=== PATIENT | male | born 1950 | race Caucasian/White ===

== ENCOUNTER 2023-05-01 23:25 | Emergency (ER) | payer MEDICARE, BC, SELFPAY ==
[2023-05-01 23:44] VITALS: BP 95/67
[2023-05-02 00:12] VITALS: BP 100/80
[2023-05-02 00:13] VITALS: BMI 28.7
[2023-05-02] MEDS: ZOFRAN 4 MG IV (00:21)
[2023-05-02] MEDS: NSS 1000 IV (00:22)
[2023-05-02 00:36] LABS: % Basophils 0.2 % (0-2); % Immature Granulocytes 0.8 % (0-0.5); % Lymphocytes 23.1 % (20.5-51.1); % Monocytes 7.5 % (1.7-9.3); % Neutrophils 65.4 % (42.2-75.2); Absolute Eosinophils 0.5 10^3/uL (0-0.7); Absolute Immature Granulocytes 0.1 10^3/uL (0-0.05); Absolute Lymphocytes 3.8 10^3/uL (1.2-3.4); Absolute Monocytes 1.2 10^3/uL (0.1-0.6); Absolute Neutrophils 10.8 10^3/uL (1.4-6.5); Hematocrit 54.8 % (39.0-52.0); Hemoglobin 19.1 g/dL (13.0-18.0); Mean Corp Hgb Conc. 34.9 g/dL (33.0-37.0); Mean Corpuscular Hgb 29.3 pg (27.0-31.0); Mean Platelet Volume 9.3 fL (7.4-10.4); Nucleated Red Blood Cells % 0 % (-); Platelet Count 357 10^3/uL (130-400); Red Blood Cell Count 6.52 10^6/uL (4.70-6.10); Red Cell Dist. Width 14.4 % (11.5-14.5); White Blood Cell Count 16.5 10^3/uL (4.8-10.8)
--- NOTE | 2023-05-02 00:44 | ED.GENMED ---
History of Present Illness
General
Chief Complaint: Abdominal Symptoms
Source: patient
Exam Limitations: none
Time Seen by Provider: 05/02/23 00:33
Travel History
Have you had any contact with someone who has COVID-19?: No
Do you have any symptoms of coronavirus? Fever > 100 degrees, chills, cough, shortness of breath, sore throat, loss of taste or smell, muscle aches, or headache?: No
History of Present Illness
History of Present Illness:
72-year-old male with complaining of vomiting diarrhea and at times crampy abdominal pain. Had symptoms about a week ago for 3 days then seem to resolve then recurred in the last day or so. No blood or mucus in the stool. No recent antibiotics.
No recent unusual travel history. No one else is ill at home. Currently mostly complaining of nausea
Past History
Past History
ED Past Medical History: Arrthythmia (Atrial fibrillation), CAD, HTN, Hypercholesterolemia and Other (Gout)
ED Past Surgical History: Appendectomy and Cardiac
Patient has exhibited threatening behavior?: No
PSI?: No
Social History
Tobacco: Non-smoker
Alcohol: Occasional
Drug: None
Review of Systems
Review of Systems
All Other Systems: Not applicable
Constitutional: Denies fever
Respiratory: Reports no symptoms
Phy Exam
Physical Exam
Physical Exam:
GENERAL: Alert and oriented in no apparent distress
EYE: Orbits normal.
NECK: Supple, no significant adenopathy.
ENT: Pharynx without erythema
CARDIAC: Regular rate and rhythm without any obvious murmurs.
LUNGS: Clear breath sounds,normal
ABDOMEN: Soft, bowel sounds present. No rebound or guarding. No mass or hernia. Mild suprapubic tenderness.
NEUROLOGICAL: Alert and oriented , grossly non-focal
SKIN: Warm and dry, no rash or lesion, no discoloration, skin intact.
MUSCULOSKELETAL: No edema,no deformity.Good color
PSYCH: Normal and appropriate interaction.
Course
Orders/Labs/Results
Orders:
Orders
05/02/23 00:03
EKG [Electrocardiogram (*1)] Urgent
Reason for Study: Fatigue / Weakness
05/02/23 00:04
EKG- Treatment ONCE
05/02/23 00:05
IV Insert/Care/Rem.- Treatment PRN
05/02/23 00:18
Complete Blood Count/With Diff Urgent
Comprehensive Metabolic Panel Urgent
Lipase Urgent
05/02/23 00:20
Ondansetron Injectable [Zofran] 4 mg .ROUTE .STK-MED ONE
Ondansetron Injectable [Zofran] 4 mg IV NOW STA
05/02/23 00:22
0.9% Sodium Chloride 1000 ml [Nss] 1,000 ml IV BOLUS
05/02/23 00:40
CT Abd/Pel (IV only)-DH only Urgent
Comment:
Reason For Exam: Abdominal pain/vomiting/diarrhea
05/02/23 02:43
Azithromycin [Zithromax] 500 mg PO NOW STA
Abnormal Lab Results
05/02/23
00:18
WBC 16.5 H 10^3/uL
(4.8-10.8)
RBC 6.52 H 10^6/uL
(4.70-6.10)
Hgb 19.1 H g/dL
(13.0-18.0)
Hct 54.8 H %
(39.0-52.0)
Abs Immat Gran (auto) 0.1 H 10^3/uL
(0-0.05)
Absolute Neuts (auto) 10.8 H 10^3/uL
(1.4-6.5)
Absolute Lymphs (auto) 3.8 H 10^3/uL
(1.2-3.4)
Absolute Monos (auto) 1.2 H 10^3/uL
(0.1-0.6)
Immature Gran % 0.8 H %
(0-0.5)
Carbon Dioxide 21 L mmol/L
(22-30)
BUN 34 H mg/dl
(9-20)
Creatinine 1.4 H mg/dL
(0.7-1.3)
Glucose 184 H mg/dl
(70-99)
Calcium 10.6 H mg/dl
(8.4-10.2)
Total Bilirubin 1.4 H mg/dl
(0.2-1.3)
05/02/23 00:18
05/02/23 00:18
Vital Signs
Initial and Last Documented VS:
Initial Vital Signs
Temp Pulse Resp BP Pulse Ox
97.4 F 78 18 95/67 98
05/01/23 23:44 05/01/23 23:44 05/01/23 23:44 05/01/23 23:44 05/01/23 23:44
Last Documented Vital Signs
Temp Pulse Resp BP Pulse Ox
97.4 F 90 16 110/82 100
05/01/23 23:44 05/02/23 02:45 05/02/23 02:45 05/02/23 02:13 05/02/23 00:13
MDM/Problems Addressed
Differential Diagnosis Includes:
Symptoms most consistent with colitis or enteritis. Workup in progress.
*Radiology
Radiology exam reviewed: radiology read reviewed (Ackerman colitis)
*Pulse Oximetry
Patient hypoxic: no
*Critical Care Note
Total Time (30-74mins, 75-104mins- exclusive of procedures): Not Applicable
Data Reviewed
Review of Other/Old Records Reveals: Labs, Records and Radiology Studies
Update Note
Update Note:
Patient updated on testing. Leukocytosis, pancolitis. Patient would very much prefer to go home and states he feels much improved. Given patient's age and leukocytosis we will start azithromycin. Patient does not tolerate Cipro well. No blood
or mucus in the stool. Admission was offered
ED Attending Note
-
Portions of this chart may have been created with voice recognition software.� Occasional wrong word or��sound alike� substitutions may have occurred due to the inherent limitations of voice recognition software.
Discharge Plan
Departure
Patient Disposition: Home (Routine Discharge)
Date of Disposition: 05/02/23
Time of Disposition: 02:44
Patient with high blood pressure during this ER visit?: No
Discharge Problem:
Colitis
Instructions: Colitis (DC)
Prescriptions:
New
azithromycin 500 mg tablet
500 mg PO DAILY 2 Days Qty: 2 0RF
No Action
atorvastatin 80 MG tablet
80 mg PO HS
atenolol 25 MG tablet
25 mg PO BID
pantoprazole [Protonix] 40 MG tablet,delayed release (DR/EC)
40 mg PO DAILY
aspirin 81 MG tablet,chewable
81 mg PO DAILY
dabigatran etexilate [Pradaxa] 150 mg Capsule
150 mg PO BID
metformin 500 mg Tablet Extended Release 24 Hr
500 mg PO DAILY@1700
losartan 25 mg tablet
50 mg PO BID
triamterene-hydrochlorothiazid 37.5-25 mg Capsule
1 cap PO DAILY
Rybelsus 7 mg Tablet
7 mg PO DAILY
Referrals:
Lennox Ellsworth MD [Family Provider] - Follow up in 2-3 days
Activity Restrictions/Additional Instructions:
Light diet
Stay well-hydrated
Return with increased pain vomiting high fever bloody stools or any other concerning symptoms
Also get rechecked if symptoms or not improving in 1 to 2 days
Interventions
Interventions:
*Risk Screen - Suicide Last Done: 05/02/23 00:13
*General Assessment Last Done: 05/02/23 00:13
*Neglect/Abuse Screening Last Done: 05/02/23 00:13
ED- Fall Risk Assessment Last Done: 05/02/23 00:13
*ED COVID-19 Vaccine History Last Done: 05/02/23 00:13
*Nursing Disposition Last Done: 05/02/23 02:59
DN-Hfmbfi-Dqvrzhnjnl Assessment Last Done: 05/02/23 00:13
Discharge Date and Time
Discharge Date/Time: 05/02/23 02:59
[2023-05-02 00:47] LABS: ALT (SGPT) 27 U/L (0-50); AST (SGOT) 26 U/L (17-59); Albumin 4.6 g/dl (3.5-5.0); Alkaline Phosphatase 90 U/L (38-126); Blood Urea Nitrogen 34 mg/dl (9-20); Calcium 10.6 mg/dl (8.4-10.2); Carbon Dioxide 21 mmol/L (22-30); Chloride 101 mmol/L (98-107); Estimated Creatinine Clearance 45 ml/min; Glucose 184 mg/dl (70-99); Potassium 3.9 mmol/L (3.5-5.1); Sodium 140 mmol/L (135-145); Total Bilirubin 1.4 mg/dl (0.2-1.3); Total Protein 7.8 g/dl (6.3-8.2); eGFR 52.74
[2023-05-02 01:00] VITALS: BP 106/86
[2023-05-02 01:09] LABS: Lipase 120 U/L (23-300)
[2023-05-02 02:13] VITALS: BP 110/82
[2023-05-02] MEDS: ZITHROMAX 500 MG PO ×2 (02:50)
== END 2023-05-02 02:59 | disposition home or self-care (01) ==
LOC: EMR 23:25
PROVIDERS: Emergency Medicine; EMERGENCY PHYSICIAN Emergency Medicine; FAMILY PHYSICIAN Internal Medicine Geriatric Medicine
DX: K52.9 Noninfective gastroenteritis and colitis, unspecified (principal)
CPT/HCPCS: 99285; 96374; 74177; 80053; 83690; 85025; 93005; Q9967

== ENCOUNTER → 2023-06-23 09:30 | Outpatient (REF) | payer MEDICARE, BC, SELFPAY ==
[2023-06-23 10:20] LABS: % Basophils 0.5 % (0-2); % Eosinophils 4.1 % (0-6); % Immature Granulocytes 0.5 % (0-0.5); % Lymphocytes 31.8 % (20.5-51.1); % Monocytes 11.1 % (1.7-9.3); Absolute Eosinophils 0.3 10^3/uL (0-0.7); Absolute Monocytes 0.7 10^3/uL (0.1-0.6); Absolute Neutrophils 3.3 10^3/uL (1.4-6.5); Hematocrit 45.8 % (39.0-52.0); Hemoglobin 15.9 g/dL (13.0-18.0); Mean Corp Hgb Conc. 34.7 g/dL (33.0-37.0); Mean Corpuscular Hgb 29.4 pg (27.0-31.0); Mean Corpuscular Volume 84.7 fL (80.0-94.0); Nucleated Red Blood Cells % 0 % (-); Platelet Count 253 10^3/uL (130-400); Red Blood Cell Count 5.41 10^6/uL (4.70-6.10); Red Cell Dist. Width 14.3 % (11.5-14.5); White Blood Cell Count 6.3 10^3/uL (4.8-10.8)
[2023-06-23 12:18] LABS: Glycohemoglobin (HgbA1c) 6.2 % (4.0-5.6)
[2023-06-23 13:58] LABS: ALT (SGPT) 31 U/L (0-50); AST (SGOT) 26 U/L (17-59); Albumin 4.4 g/dl (3.5-5.0); Alkaline Phosphatase 73 U/L (38-126); Blood Urea Nitrogen 29 mg/dl (9-20); Calcium 9.9 mg/dl (8.4-10.2); Carbon Dioxide 28 mmol/L (22-30); Chloride 98 mmol/L (98-107); Glucose 105 mg/dl (70-99); HDL Cholesterol 34 mg/dl; LDL Cholesterol, Calculated 65 mg/dl; Potassium 3.8 mmol/L (3.5-5.1); Sodium 138 mmol/L (135-145); Total Bilirubin 1.4 mg/dl (0.2-1.3); Total Cholesterol 128 mg/dl (50-199); Total Protein 7.4 g/dl (6.3-8.2); Triglyceride 149 mg/dl (10-149); Very Low Density Lipoprotein 29 mg/dl (0-30); eGFR > 60.00
== END ==
LOC: REG 09:30
PROVIDERS: ATTENDING PHYSICIAN Physician Assistant; FAMILY PHYSICIAN Internal Medicine Geriatric Medicine
DX: E11.9 Type 2 diabetes mellitus without complications (principal)
CPT/HCPCS: 36415; 80053; 80061; 83036; 85025

== ENCOUNTER → 2023-08-20 08:43 | Outpatient (REF) | payer MEDICARE, BC, SELFPAY ==
[2023-08-20 14:33] LABS: Lyme Antibody Screen, EIA Negative (Negative)
== END ==
LOC: REG 08:43
PROVIDERS: ATTENDING PHYSICIAN Nurse Practitioner Family; FAMILY PHYSICIAN Internal Medicine Geriatric Medicine
DX: S40.262A Insect bite (nonvenomous) of left shoulder, initial encounter (principal)
CPT/HCPCS: 36415; 86618

== ENCOUNTER → 2023-10-07 09:02 | Outpatient (REF) | payer MEDICARE, BC, SELFPAY | LOC: REG 09:02 | PROVIDERS: ATTENDING PHYSICIAN Nurse Practitioner Family | DX: E11.9 Type 2 diabetes mellitus without complications (principal) | CPT/HCPCS: 36415; 82985 ==

== ENCOUNTER → 2023-10-20 14:06 | Outpatient (REF) | payer MEDICARE, BC, SELFPAY ==
[2023-10-23 00:06] LABS: Fructosamine 299 umol/L (205-285)
== END ==
LOC: REG 14:06
PROVIDERS: ATTENDING PHYSICIAN Nurse Practitioner Family; FAMILY PHYSICIAN Internal Medicine Geriatric Medicine
DX: E11.65 Type 2 diabetes mellitus with hyperglycemia (principal)
CPT/HCPCS: 36415; 82985

== ENCOUNTER → 2023-11-09 09:26 | Outpatient (REF) | payer MEDICARE, BC, SELFPAY ==
[2023-11-09 10:43] LABS: % Basophils 0.6 % (0-2); % Eosinophils 4.8 % (0-6); % Immature Granulocytes 0.2 % (0-0.5); % Lymphocytes 33.7 % (20.5-51.1); % Monocytes 9.5 % (1.7-9.3); % Neutrophils 51.2 % (42.2-75.2); Absolute Eosinophils 0.3 10^3/uL (0-0.7); Absolute Lymphocytes 2.2 10^3/uL (1.2-3.4); Absolute Monocytes 0.6 10^3/uL (0.1-0.6); Absolute Neutrophils 3.4 10^3/uL (1.4-6.5); Hematocrit 45.3 % (39.0-52.0); Hemoglobin 15.8 g/dL (13.0-18.0); Mean Corp Hgb Conc. 34.9 g/dL (33.0-37.0); Mean Corpuscular Hgb 29.9 pg (27.0-31.0); Mean Corpuscular Volume 85.6 fL (80.0-94.0); Mean Platelet Volume 9.6 fL (7.4-10.4); Nucleated Red Blood Cells % 0 % (-); Platelet Count 235 10^3/uL (130-400); Red Blood Cell Count 5.29 10^6/uL (4.70-6.10); Red Cell Dist. Width 13.7 % (11.5-14.5); White Blood Cell Count 6.6 10^3/uL (4.8-10.8)
[2023-11-09 11:35] LABS: ALT (SGPT) 35 U/L (0-50); AST (SGOT) 30 U/L (17-59); Albumin 4.5 g/dl (3.5-5.0); Alkaline Phosphatase 72 U/L (38-126); Blood Urea Nitrogen 28 mg/dl (9-20); Calcium 9.5 mg/dl (8.4-10.2); Carbon Dioxide 24 mmol/L (22-30); Chloride 101 mmol/L (98-107); Glucose 134 mg/dl (70-99); HDL Cholesterol 32 mg/dl; LDL Cholesterol, Calculated 48 mg/dl; Potassium 3.9 mmol/L (3.5-5.1); Sodium 139 mmol/L (135-145); Total Cholesterol 106 mg/dl (50-199); Triglyceride 131 mg/dl (10-149); Very Low Density Lipoprotein 26 mg/dl (0-30); eGFR > 60.00
[2023-11-11 00:05] LABS: PSA Total 3.8 ng/mL (0.0-4.0)
== END ==
LOC: REG 09:26
PROVIDERS: ATTENDING PHYSICIAN Physician Assistant; FAMILY PHYSICIAN Internal Medicine Geriatric Medicine
DX: E11.65 Type 2 diabetes mellitus with hyperglycemia (principal); E78.5 Hyperlipidemia, unspecified; R97.20 Elevated prostate specific antigen [PSA]
CPT/HCPCS: 36415; 80053; 80061; 83036; 84153; 84154; 85025

== ENCOUNTER → 2023-11-11 11:34 | Outpatient (REF) | payer MEDICARE, BC, SELFPAY | LOC: DHCBC/DCA 11:34 | PROVIDERS: ATTENDING PHYSICIAN Internal Medicine Cardiovascular Disease; FAMILY PHYSICIAN Internal Medicine Geriatric Medicine | DX: I25.10 Atherosclerotic heart disease of native coronary artery without angina pectoris (principal) | CPT/HCPCS: 78452; 93017; A9500 ==

== ENCOUNTER → 2023-12-23 10:19 | Outpatient (REF) | payer MEDICARE, BC, SELFPAY | LOC: RAD 10:19 | PROVIDERS: ATTENDING PHYSICIAN Nurse Practitioner Family; FAMILY PHYSICIAN Internal Medicine Geriatric Medicine; REFERRING PHYSICIAN Internal Medicine Cardiovascular Disease | DX: M54.50 Low back pain, unspecified (principal) | CPT/HCPCS: 72110 ==

== ENCOUNTER → 2024-01-29 07:21 | Outpatient (REF) | payer MEDICARE, BC, SELFPAY ==
[2024-01-29 08:28] LABS: Urine Albumin Trace (Neg - Trace); Urine Bilirubin Negative (Negative); Urine Character Clear (Clear); Urine Color Yellow; Urine Glucose Negative (Negative); Urine Ketone Negative (Negative); Urine Leukocyte Negative (Negative); Urine Nitrite Negative (Negative); Urine Occult Blood 1+ (Negative); Urine Specific Gravity 1.015 (<1.030); Urine Urobilinogen Negative (Neg - 1+)
[2024-01-29 08:36] LABS: Urine Bacteria Few (Negative); Urine Red Blood Cell 0-2 /HPF (0-2); Urine Squamous Cell 0-2 /LPF (Few); Urine White Cell 0-2 /HPF (0-5)
[2024-01-29 08:59] LABS: Blood Urea Nitrogen 25 mg/dl (9-20); Calcium 9.6 mg/dl (8.4-10.2); Carbon Dioxide 29 mmol/L (22-30); Chloride 99 mmol/L (98-107); Glucose 197 mg/dl (70-99); Potassium 3.9 mmol/L (3.5-5.1); Sodium 140 mmol/L (135-145); eGFR > 60.00
[2024-01-29 09:16] LABS: Microalbumin, Random Urine 9.5 mg/dl (0.6-1.7); Microalbumin/creatinine Ratio 103.1 mg/g
[2024-01-29 10:10] LABS: Glycohemoglobin (HgbA1c) 7.7 % (4.0-5.6)
== END ==
LOC: REG 07:21
PROVIDERS: ATTENDING PHYSICIAN Nurse Practitioner Family; FAMILY PHYSICIAN Internal Medicine Geriatric Medicine
DX: E11.65 Type 2 diabetes mellitus with hyperglycemia (principal); M54.50 Low back pain, unspecified
CPT/HCPCS: 36415; 80048; 81003; 81015; 82043; 82570; 83036

== ENCOUNTER → 2024-07-27 08:58 | Outpatient (REF) | payer MEDICARE, BC, SELFPAY ==
[2024-07-27 10:19] LABS: Glycohemoglobin (HgbA1c) 7.4 % (4.0-5.6)
[2024-07-27 11:13] LABS: ALT (SGPT) 48 U/L (0-50); AST (SGOT) 31 U/L (17-59); Albumin 4.6 g/dl (3.5-5.0); Alkaline Phosphatase 60 U/L (38-126); Blood Urea Nitrogen 34 mg/dl (9-20); Calcium 9.4 mg/dl (8.4-10.2); Carbon Dioxide 27 mmol/L (22-30); Chloride 102 mmol/L (98-107); Glucose 189 mg/dl (70-99); Sodium 142 mmol/L (135-145); Total Bilirubin 1.3 mg/dl (0.2-1.3); Total Protein 7.3 g/dl (6.3-8.2); eGFR > 60.00
== END ==
LOC: REG 08:58
PROVIDERS: ATTENDING PHYSICIAN Physician Assistant; FAMILY PHYSICIAN Internal Medicine Geriatric Medicine
DX: E11.65 Type 2 diabetes mellitus with hyperglycemia (principal)
CPT/HCPCS: 36415; 80053; 83036

== ENCOUNTER → 2024-08-22 08:22 | Outpatient (REF) | payer MEDICARE, BC, SELFPAY ==
[2024-08-22 14:06] LABS: ALT (SGPT) 56 U/L (0-50); AST (SGOT) 35 U/L (17-59); Albumin 4.6 g/dl (3.5-5.0); Alkaline Phosphatase 62 U/L (38-126); Blood Urea Nitrogen 30 mg/dl (9-20); Calcium 9.3 mg/dl (8.4-10.2); Carbon Dioxide 24 mmol/L (22-30); Chloride 108 mmol/L (98-107); Glucose 166 mg/dl (70-99); Potassium 4.2 mmol/L (3.5-5.1); Sodium 143 mmol/L (135-145); Total Bilirubin 1.3 mg/dl (0.2-1.3); Total Protein 7.2 g/dl (6.3-8.2); eGFR > 60.00
== END ==
LOC: REG 08:22
PROVIDERS: ATTENDING PHYSICIAN Physician Assistant; FAMILY PHYSICIAN Internal Medicine Geriatric Medicine
DX: E11.65 Type 2 diabetes mellitus with hyperglycemia (principal)
CPT/HCPCS: 36415; 80053

== ENCOUNTER → 2024-09-02 07:51 | Outpatient (REF) | payer MEDICARE, BC, SELFPAY ==
--- NOTE | 2024-09-02 09:31 | CARDSERVLU ---
Echocardiogram with Lumason completed after protocol screening completed. Allergies verified. Pt here for Echo Stress test.
Patent IV site: Right antecubital 22 G PC
IV site flushed with 0.9% NaCl pre and post administration.
Diluted bolus method utilized to enhance visualization of ventricular jolly.
Total volume given: _4__ mL
Patient tolerated all procedures well without complications.
Heplock D/C ed at 0931, site clear. Pressure held, no bleeding. 2x2 applied and taped. Pt offers no complaints.
== END ==
LOC: RCS 07:51
PROVIDERS: ATTENDING PHYSICIAN Internal Medicine Geriatric Medicine
DX: I48.0 Paroxysmal atrial fibrillation (principal); I25.10 Atherosclerotic heart disease of native coronary artery without angina pectoris; I10 Essential (primary) hypertension; E78.5 Hyperlipidemia, unspecified; E11.65 Type 2 diabetes mellitus with hyperglycemia; K21.9 Gastro-esophageal reflux disease without esophagitis; E11.43 Type 2 diabetes mellitus with diabetic autonomic (poly)neuropathy; K31.84 Gastroparesis
CPT/HCPCS: 93017; 93350

== ENCOUNTER → 2024-10-31 07:42 | Outpatient (REF) | payer MEDICARE, BC, SELFPAY ==
[2024-10-31 09:27] LABS: Hematocrit 46.1 % (39.0-52.0); Hemoglobin 15.5 g/dL (13.0-18.0); Mean Corp Hgb Conc. 33.6 g/dL (33.0-37.0); Mean Corpuscular Volume 86.3 fL (80.0-94.0); Nucleated Red Blood Cells % 0 % (-); Platelet Count 222 10^3/uL (130-400); Red Cell Dist. Width 13.7 % (11.5-14.5)
[2024-10-31 09:41] LABS: Urine Character Clear (Clear)
[2024-10-31 10:34] LABS: HDL Cholesterol 29 mg/dl; LDL Cholesterol, Calculated 60 mg/dl; Very Low Density Lipoprotein 34 mg/dl (0-30)
[2024-10-31 10:38] LABS: Vitamin D, 25-OH*** 30.7 ng/mL (30-80)
[2024-10-31 10:46] LABS: Microalb - Urine Creatinine 169.000 mg/dl
[2024-10-31 10:49] LABS: Microalbumin, Random Urine 7.8 mg/dl (0.6-1.7)
[2024-10-31 10:51] LABS: Urine Squamous Cell 0-2 /LPF (Few)
[2024-10-31 10:52] LABS: PSA, Total - Diagnostic 4.45 ng/ml (0.0-4.0)
[2024-10-31 10:53] LABS: Urine Red Blood Cell 0-2 /HPF (0-2)
[2024-10-31 11:00] LABS: Glycohemoglobin (HgbA1c) 8.4 % (4.0-5.6)
[2024-10-31 12:57] LABS: Lyme Antibody Screen, EIA Negative (Negative)
== END ==
LOC: REG 07:42
PROVIDERS: ATTENDING PHYSICIAN Internal Medicine Geriatric Medicine; OTHER PHYSICIAN Physician Assistant; REFERRING PHYSICIAN Student in an Organized Health Care Education/Training Program
DX: E11.65 Type 2 diabetes mellitus with hyperglycemia (principal); I48.0 Paroxysmal atrial fibrillation; I10 Essential (primary) hypertension; E78.5 Hyperlipidemia, unspecified; I25.10 Atherosclerotic heart disease of native coronary artery without angina pectoris; K21.9 Gastro-esophageal reflux disease without esophagitis; E11.43 Type 2 diabetes mellitus with diabetic autonomic (poly)neuropathy; K31.84 Gastroparesis; R97.20 Elevated prostate specific antigen [PSA]
CPT/HCPCS: 36415; 80061; 81003; 81015; 82043; 82306; 82570; 83036; 84153; 85025; 86618; 86765

== ENCOUNTER → 2024-11-25 09:09 | Outpatient (REF) | payer MEDICARE, BC, SELFPAY ==
[2024-11-25 11:05] LABS: ALT (SGPT) 51 U/L (0-50); AST (SGOT) 33 U/L (17-59); Albumin 4.5 g/dl (3.5-5.0); Alkaline Phosphatase 64 U/L (38-126); Blood Urea Nitrogen 37 mg/dl (9-20); Calcium 9.7 mg/dl (8.4-10.2); Carbon Dioxide 27 mmol/L (22-30); Chloride 104 mmol/L (98-107); Glucose 158 mg/dl (70-99); Potassium 4.0 mmol/L (3.5-5.1); Sodium 141 mmol/L (135-145); Total Protein 7.4 g/dl (6.3-8.2); eGFR 56.93
== END ==
LOC: REG 09:09
PROVIDERS: ATTENDING PHYSICIAN Internal Medicine Geriatric Medicine; OTHER PHYSICIAN Student in an Organized Health Care Education/Training Program; REFERRING PHYSICIAN Physician Assistant
DX: E11.65 Type 2 diabetes mellitus with hyperglycemia (principal); I10 Essential (primary) hypertension
CPT/HCPCS: 36415; 80053; 82985

== ENCOUNTER 2025-03-15 00:52 | Observation (INO) | payer MEDICARE, BC, SELFPAY ==
[2025-03-14 22:44] VITALS: BP 141/82
[2025-03-14 22:47] VITALS: BP 141/82
[2025-03-14 23:00] VITALS: BP 147/92
[2025-03-14 23:06] LABS: Hematocrit 47.5 % (39.0-52.0); Hemoglobin 16.2 g/dL (13.0-18.0); Mean Corp Hgb Conc. 34.1 g/dL (33.0-37.0); Mean Corpuscular Volume 84.4 fL (80.0-94.0); Nucleated Red Blood Cells % 0 % (-); Platelet Count 202 10^3/uL (130-400); Red Cell Dist. Width 13.8 % (11.5-14.5)
[2025-03-14 23:13] LABS: COVID-19 Antigen Negative (Negative)
[2025-03-14 23:29] LABS: ALT (SGPT) 51 U/L (0-50); AST (SGOT) 137 U/L (17-59); Albumin 4.6 g/dl (3.5-5.0); Alkaline Phosphatase 67 U/L (38-126); Blood Urea Nitrogen 23 mg/dl (9-20); Calcium 9.3 mg/dl (8.4-10.2); Carbon Dioxide 22 mmol/L (22-30); Chloride 98 mmol/L (98-107); Glucose 283 mg/dl (70-99); Potassium 3.9 mmol/L (3.5-5.1); Sodium 134 mmol/L (135-145); Total Protein 7.6 g/dl (6.3-8.2); eGFR > 60.00
--- NOTE | 2025-03-14 23:41 | ED.GENMED ---
History of Present Illness
General
Chief Complaint: Abdominal Symptoms
Source: patient and family
Exam Limitations: none
Time Seen by Provider: 03/14/25 23:12
Nursing documentation reviewed up to this point in time: agreed with
History of Present Illness
History of Present Illness:
74-year-old male from home with family cough fever nausea vomiting decreased p.o. intake weakness has some Tylenol no diarrhea mild abdominal cramping hypertensive diabetic did get a flu shot apparently
Past History
Past History
ED Past Medical History: Arrthythmia (Atrial fibrillation), CAD, HTN, Hypercholesterolemia and Other (Gout)
ED Past Surgical History: Appendectomy and Cardiac
Patient has exhibited threatening behavior?: No
PSI?: No
Social History
Tobacco: Non-smoker
Alcohol: Occasional
Drug: None
Personal:
Living: with family
Employment: Employed
Review of Systems
Review of Systems
All Other Systems: Not applicable
Constitutional: Reports fever, fatigue and chills
Respiratory: Reports cough and trouble breathing
Cardiac: Denies chest pain
ABD/GI: Reports nausea and vomiting
: Reports no symptoms
Musculoskeletal: Reports muscle stiffness
Neurological: Reports weakness
Phy Exam
Physical Exam
Physical Exam:
Physical Exam
General: 74-year-old male warm to touch
Neck: Dry lips
Heart: Tachycardic
Lungs: Basilar crackles
Abdomen: Nontender
Neuro: Globally weak awake and oriented moves all extremities
Skin: no rash
Psychiatric: cooperative
Extremities: No cyanosis
Course
Orders/Labs/Results
Orders:
Orders
03/14/25 22:46
Electrocardiogram (*1) Urgent
Reason for Study: Shortness of Breath
EKG- Treatment ONCE
CR Chest - 2 Views Urgent
Comment:
Reason For Exam: cough
03/14/25 22:48
Urinalysis Reflex To Culture Urgent
03/14/25 22:53
COVID-19 Antigen Urgent
Source: Nasal Swab
Complete Blood Count/With Diff Urgent
Comprehensive Metabolic Panel Urgent
Blood Culture Q30M
JANETH Source: Blood/Venous
Specimen Description:
Blood Culture Q30M
JANETH Source: Blood/Venous
Specimen Description:
Influenza A+B Rapid Molecular Urgent
JANETH Source: Nasal Swab
Specimen Description:
03/14/25 23:31
0.9% Sodium Chloride 1000 ml [Nss] 2,000 ml IV BOLUS
Acetaminophen [Tylenol] 650 mg PO NOW STA
Ondansetron Injectable [Zofran] 4 mg IV NOW STA
03/14/25 23:39
0.9% Sodium Chloride 1000 ml [Nss] 1,000 ml IV BOLUS
03/15/25 00:09
Oseltamivir Phosphate [Tamiflu] 75 mg PO NOW STA
03/15/25 00:37
Admit/Transfer Patient As Directed
Co-Sign Provider:
Level of Care: Observation services
Assign to:: Medical/Surgical
Physician / Group: Terellorbrien
Diagnosis: Influenza A infection
PRN Pain Medication Management As Directed
May give lesser potent ordered pain med per pt: Yes
preference::
Protocol:: Medication orders for pain may be administered in a
manner that supports deferring to patient preference
when the pt is:
- Requesting an ordered lesser potent pain medication.
Least to most potent pain medications are defined
as: acetaminophen < NSAID < tramadol < opioids
(morphine, oxycodone, hydromorphone).
- Requesting a lesser dose of the same medication IF
ORDERED.
- Requesting a less intrusive route of administration
if both routes are prescribed by the provider (PO <
IV).
03/15/25 00:40
Code Status As Directed
Resuscitation Status: Full Code
03/15/25 08:00
Oseltamivir Phosphate [Tamiflu] 30 mg PO DAILY
Abnormal Lab Results
03/14/25
22:53
Absolute Neuts (auto) 7.6 H 10^3/uL
(1.4-6.5)
Absolute Lymphs (auto) 0.6 L 10^3/uL
(1.2-3.4)
Absolute Monos (auto) 1.0 H 10^3/uL
(0.1-0.6)
Neutrophils % 82.2 H %
(42.2-75.2)
Lymphocytes % 6.3 L %
(20.5-51.1)
Monocytes % 10.8 H %
(1.7-9.3)
Sodium 134 L mmol/L
(135-145)
BUN 23 H mg/dl
(9-20)
Glucose 283 H mg/dl
(70-99)
Total Bilirubin 1.5 H mg/dl
(0.2-1.3)
AST 137 H U/L
(17-59)
ALT 51 H U/L
(0-50)
03/14/25 22:53
03/14/25 22:53
Vital Signs
Initial and Last Documented VS:
Initial Vital Signs
Temp Pulse Resp Pulse Ox
100.7 F H 77 20 93
03/14/25 22:43 03/14/25 22:43 03/14/25 22:43 03/14/25 22:43
Last Documented Vital Signs
Temp Pulse Resp BP Pulse Ox
100.7 F H 71 19 147/92 92
03/14/25 22:43 03/14/25 23:00 03/14/25 22:45 03/14/25 23:00 03/14/25 23:43
MDM/Problems Addressed
Differential Diagnosis Includes:
Viral syndrome influenza pneumonia UTI biliary
MDM/Problems Addressed:
Fever vomiting cough
Chronic conditions affecting care: DM and HTN
Acute Exacerbation and/or Progression of Chronic Illness: DM and HTN
*Radiology
Radiology exam reviewed: preliminary read by ED provider
*Pulse Oximetry
SaO2: 92
Oxygen Mode of Delivery: Room air
Patient hypoxic: yes
*Wire Repairer Interpretation
Rate: tachycardiac
Interpretation: abnormal
Heart Rate: 118
Rhythm: sinus
*Critical Care Note
Total Time (30-74mins, 75-104mins- exclusive of procedures): 20
Update Note
Update Note:
Update labs noted viral swab noted looks like influenza positive which fits chest x-ray looks like a infiltrate on the lateral, borderline hypoxic is elderly with multiple comorbid conditions will start Tamiflu IV fluids antiemetics low threshold to
admit
ED Attending Note
-
Portions of this chart may have been created with voice recognition software.� Occasional wrong word or��sound alike� substitutions may have occurred due to the inherent limitations of voice recognition software.
Discharge Plan
Departure
Patient Disposition: Admit
Date of Disposition: 03/15/25
Time of Disposition: 00:28
Admit to: Med/Surg
Presentation/result/management discussed w/ accepting MD/DO: Hospitalist
Patient with high blood pressure during this ER visit?: No
Condition: Fair
Covid-19: Not Applicable
Discharge Problem:
Influenza
Interventions
Interventions:
*General Assessment Last Done: 03/15/25 00:08
*Neglect/Abuse Screening Last Done: 03/15/25 00:09
*ED COVID-19 Vaccine History Last Done: 03/15/25 00:08
*ED Influenza Vaccine History Last Done: 03/15/25 00:08
[facility] Risk Assessment Tool Last Done: 03/15/25 00:06
*Risk Screen - Suicide (C-SSRS) Last Done: 03/15/25 00:10
WB-Xnqdri-Sdmtjmzjkn Assessment Last Done: 03/15/25 00:10
[2025-03-14] MEDS: TYLENOL 650 MG PO (23:58)
[2025-03-14] MEDS: ZOFRAN 4 MG IV (23:58)
[2025-03-14] MEDS: NSS 1000 IV (23:59)
[2025-03-15] VITALS (8 sets, daily range): BP systolic 119–170; BP diastolic 65–98; BMI 30.3
[2025-03-15] MEDS: TAMIFLU 75 MG PO ×2 (00:14→20:20)
--- NOTE | 2025-03-15 00:32 | HPS.HSE ---
Family Physician
-
Family Physician: Lennox Ellsworth
Chief Complaint
-
Flu
History of Present Illness
This is a 74-year-old with past medical history significant for CAD status post OK and stenting to the mid and distal RCA in 2004, proximal atrial fibrillation on anticoagulation, hypertension, anxiety, wov-zmepqfl-gvbgrksga diabetes presenting to
the emergency department with approximately 1-1/2 days of flulike symptoms.
He lives with his son. His son developed flulike symptoms about 5 days ago reports that he is now recovering fully. Patient developed symptoms on Thursday. He reports today he had severe weakness. Inability to support himself standing. Minimally
productive cough. Intermittent chills. Generalized aches. He denies nausea vomiting or diarrhea. Denies any significant cough. He denies any shortness of breath at rest. He denies having any chest pain. He denies any lower extremity swelling.
He denies having any palpitations.
In the emergency department patient was febrile 200.9, blood pressure was 147/92 with a pulse rate of 71 and oxygen saturation of 94% on room air. ECG shows a normal sinus rhythm at a rate of 80. Chest x-ray shows no acute infiltrates. CBC was
unremarkable, electrolytes BUN/creatinine were in the normal range. Glucose was 283. He had mild elevations in AST and ALT as well as total bilirubin.
Medical History
Past Medical History
Past Medical History: Reports Other
Additional Past Medical History:
essential HTN, cad s/p stentx2, HLD, parox afib on pradaxa, type IIDM, gerd
Past Surgical History: Reports Other
Social History
Tobacco: Non-smoker
Alcohol: None
Drug: None
Living: With Family
Family History
Family History: Not pertinent
Allergies / Home Medications
Allergies reflects when Allergies were last updated in [employer]
Home Medications with original date entered in [employer]
Allergy/Medication List:
Allergies
Allergy/AdvReac Type Severity Reaction Status Date / Time
epinephrine Allergy Severe Unknown Verified 01/09/22 11:13
Sympathomimetic A Allergy Severe Unknown Verified 01/09/22 11:13
*RETIRED-11/05/11
tropicamide Allergy Severe Unknown Verified 01/09/22 11:13
amoxicillin [Amoxicillin] Allergy Itching Verified 01/09/22 11:13
Home Medications
aspirin 81 mg chewable tablet 81 mg PO DAILY Blood clot prevention/tx 12/21/13
atenolol 25 mg tablet 25 mg PO BID Heart disease/condition 12/21/13
atorvastatin 80 mg tablet 80 mg PO HS High cholesterol 12/21/13
dabigatran etexilate 150 mg capsule (Pradaxa) 150 mg PO BID Blood clot prevention/tx 12/21/13
pantoprazole 40 mg tablet,delayed release (Protonix) 40 mg PO DAILY Gastrointestinal issue 12/21/13
zajztoh-dlnqfpvqunttw-pqrkpxqd 250 mg-250 mg-65 mg tablet (Excedrin Migraine) 0.5 tab PO BIDPRN PRN head ache 01/09/22
diltiazem HCl 30 mg tablet 30 mg PO DAILYPRN PRN palpitations 01/09/22
empagliflozin 10 mg tablet (Jardiance) 10 mg PO DAILY Diabetes 01/09/22
metformin 500 mg tablet,extended release 24 hr 500 mg PO DAILY@1700 Diabetes 01/09/22
Review of Systems
-
Constitutional: Reports Fever, Fatigue and Chills
EENT: Reports No Symptoms
Respiratory: Reports No Symptoms
Cardiac: Reports No Symptoms
Abdomen/GI: Reports No Symptoms
: Reports No Symptoms
Musculoskeletal: Reports No Symptoms
Skin: Reports No Symptoms
Neurological: Reports Weakness (Generalized weakness)
Endocrine: Reports No Symptoms
Hematologic/Lymphatic: Reports No Symptoms
Psych: Reports No Symptoms
Physical Exam
Vital Signs
Vital Signs
Temp Pulse Resp BP Pulse Ox
100.7 F H 71 19 147/92 92
03/14/25 22:43 03/14/25 23:00 03/14/25 22:45 03/14/25 23:00 03/14/25 23:43
Physical Exam
General: Well Developed, Well Nourished and No Apparent Distress
HEENT: NormoCephalic, Moist mucous membranes and Atraumatic
Respiratory: Clear
Cardiac: S1/S2 and Regular Rhythm; No Murmur or Rub
GI: Soft, Non Tender, Non Distended and Normal Bowel Sounds; No Organomegaly
Rectal: Deferred by Provider
Musculoskeletal: No Clubbing, No Cyanosis and No Edema
Skin: No Rash
Neuro: AO x 3 and Nonfocal/grossly intact
Hematologic/Lymphatic: No Lymphadenopathy
Psych: Calm
Laboratory Results
-
03/14/25 22:53
03/14/25 22:53
Laboratory Results
Total Bilirubin 1.5 mg/dl (0.2-1.3) H 03/14/25 22:53
AST 137 U/L (17-59) H 03/14/25 22:53
ALT 51 U/L (0-50) H 03/14/25 22:53
Alkaline Phosphatase 67 U/L (38-126) 03/14/25 22:53
Data Reviewed
-
Diagnostic Radiology: Image Personally Visualized and interpreted
Medical Tests (Nuc Med, Echo, EKG etc): Image Personally Visualized and interpreted
Lab Data: Labs Reviewed by me
Old Records: Reviewed
Impression/Plan
-
IMPRESSION:
74-year-old with history of proximal atrial fibrillation, CAD status post stenting, hypertension, hyperlipidemia, GERD, insulin-dependent diabetes who presents to the emergency department with chills fevers weakness and generalized malaise and was
found to have influenza A infection. He is not hypoxic currently. Chest x-ray shows no acute infiltrates. His labs mostly unremarkable except for small amount of transaminitis. Patient is unable to get up and walk at this time.
PLAN:
Influenza A�symptoms started within the last 48 hours. He is febrile here and quite lethargic. He is not hypoxic. No evidence of over lying or supine postinfection.
� Admit to MedSurg
� Start Tamiflu 75 mg twice daily
� Supportive measures with oxygen as needed, incentive spirometry
� Monitor for superimposed infection
� Gentle hydration overnight
� PT consult in a.m.
Paroxysmal atrial fibrillation�patient is in sinus rhythm, he states that he rarely develops A-fib and when he does he takes a dose of diltiazem
� Continue dabigatran 150 mg twice daily
� Continue atenolol 25 mg twice daily
� Diltiazem as needed
CAD
� Continue dabigatran
� Continue beta-blockade
� Continue ezetimibe and atorvastatin
Hypertension�stable
� Continue to hold hydrochlorothiazide and triamterene
� Continue losartan 50 mg daily
Diabetes�on metformin 500 mg extended release daily
� Hold metformin for now
� Sliding scale insulin
DVT prophylaxis�on dabigatran
CODE STATUS�full code
[2025-03-15] MEDS: NSS 1000 IV (03:35)
[2025-03-15 06:23] LABS: Hematocrit 41.9 % (39.0-52.0); Hemoglobin 14.5 g/dL (13.0-18.0); Mean Corp Hgb Conc. 34.6 g/dL (33.0-37.0); Mean Corpuscular Volume 82.5 fL (80.0-94.0); Platelet Count 166 10^3/uL (130-400); Red Cell Dist. Width 13.9 % (11.5-14.5)
[2025-03-15 06:51] LABS: ALT (SGPT) 46 U/L (0-50); AST (SGOT) 113 U/L (17-59); Albumin 3.7 g/dl (3.5-5.0); Alkaline Phosphatase 58 U/L (38-126); Blood Urea Nitrogen 23 mg/dl (9-20); Calcium 8.5 mg/dl (8.4-10.2); Carbon Dioxide 23 mmol/L (22-30); Chloride 103 mmol/L (98-107); Estimated Creatinine Clearance 76 ml/min; Glucose 181 mg/dl (70-99); Magnesium 1.6 mg/dl (1.6-2.3); Potassium 3.7 mmol/L (3.5-5.1); Sodium 134 mmol/L (135-145); Total Protein 6.5 g/dl (6.3-8.2); eGFR > 60.00
[2025-03-15] MEDS: TENORMIN 25 MG PO ×2 (09:14→20:21)
[2025-03-15] MEDS: PRADAXA 150 MG PO ×2 (09:16→20:19)
[2025-03-15] MEDS: COZAAR 50 MG PO ×2 (09:16→20:11)
[2025-03-15] MEDS: ZETIA 10 MG PO (09:17)
[2025-03-15] MEDS: PROTONIX 40 MG PO (09:17)
[2025-03-15] MEDS: TYLENOL 650 MG PO ×2 (09:19→13:30)
--- NOTE | 2025-03-15 09:30 | CM ---
Chart reviewed. BRICENO reviewed
Spoke with pt at ED bedside
Lives with [facility] [address]
Independent no DME
PCP Jodee
[facility]
no hx of VN nor SNF
DCP is to go home
can pick him up
Cm will continue to follow up for any dcp needs
[2025-03-15 13:23] LABS: Glucose - Point of Care 168 mg/dl (70-99)
[2025-03-15 17:10] LABS: Glucose - Point of Care 192 mg/dl (70-99)
[2025-03-15] MEDS: NOVOLOG FLEXPEN-LOW RESISTANCE 1 UNITS SC (18:17)
[2025-03-15] MEDS: TYLENOL PO (20:23)
[2025-03-15 20:45] LABS: Urine Character Clear (Clear)
[2025-03-15 21:20] LABS: Urine Squamous Cell 0-2 /LPF (Few); Urine Urothelial Cell 0-2 /LPF (FEW); Urine White Cell 0-2 /HPF (0-5)
[2025-03-15 22:23] LABS: Glucose - Point of Care 148 mg/dl (70-99)
[2025-03-16 01:17] VITALS: BP 144/82
[2025-03-16 07:41] VITALS: BP 162/83
[2025-03-16] MEDS: PRADAXA 150 MG PO (07:46)
[2025-03-16] MEDS: GLUCOTROL XL (EXTENDED RELEASE) 2.5 MG PO (07:46)
[2025-03-16] MEDS: TAMIFLU 75 MG PO (07:46)
[2025-03-16] MEDS: PROTONIX 40 MG PO (07:46)
[2025-03-16] MEDS: ZETIA 10 MG PO (07:47)
[2025-03-16] MEDS: COZAAR 50 MG PO (08:00)
[2025-03-16 08:01] LABS: Glucose - Point of Care 180 mg/dl (70-99)
[2025-03-16] MEDS: NOVOLOG FLEXPEN-LOW RESISTANCE 1 UNITS SC ×2 (08:01→12:19)
[2025-03-16] MEDS: TENORMIN 25 MG PO (08:01)
[2025-03-16 12:05] LABS: Glucose - Point of Care 179 mg/dl (70-99)
[2025-03-16 12:26] VITALS: BP 145/73
--- NOTE | 2025-03-16 12:55 | W.DCSUMMARY ---
Discharge Summary
Discharge Data
Date of Admission: 03/15/25
Date of Discharge: 03/16/25
-
Pending Results: No
Hospital Course
Primary diagnosis:
Acute influenza A infection
Myositis possibly viral
Secondary diagnosis:
Paroxysmal atrial fibrillation
Coronary artery disease
Essential hypertension
Diabetes mellitus type 2
Hospital course:
Patient presents to ER with fever, chills, weakness and generalized malaise. He was feeling extremely fatigued and weak. He was not able to get up and walk at the time of surgery. He was diagnosed with influenza A infection. He was not hypoxic.
Chest x-ray did not show any infiltrates. There was mild transaminitis elevation which led on for an ultrasound of the abdomen which was negative for any biliary disease. Concern was if he had any form of myositis the way this symptoms are. CPK
was elevated at 607 indicating possibly mild viral myositis. He was given IV fluids. He had a quick turnaround with improvement of his symptoms. He was advised to hold statins and repeat CMP CPK in a week. Tamiflu was prescribed and he was
discharged home.
Today he feels great. He is keen to go home. He has dry cough. Denies shortness of breath. Afebrile. Blood pressure 145/73. not hypoxic on room air. Chest was clear without wheeze or crackles. No lower extremity edema.
Deemed medically stable for discharge home today.
Portions of this chart may have been created with voice recognition software. Occasional wrong word or 'sound alike' substitutions may have occurred due to the inherent limitations of voice recognition software.
Discharge Plan
-
Patient Disposition: Home (Routine Discharge)
Discharge Diagnosis/Procedures: Acute influenza A infection
Diet: Diabetic, Carb Controlled
Activity: As tolerated
Driving Restrictions: As prior to admission
Bathing Restrictions: None
Blood Work: CMP, CPK blood work in one week -arrange through your PCP
Referrals:
Lennox Ellsworth MD [Family Provider, Internal Medicine] - in less than 1 week
Prescriptions:
New
dextromethorphan-guaifenesin 10-100 mg/5 mL Syrup
10 ml PO Q4HPRN PRN (Reason: cough) Qty: 237 0RF
oseltamivir 75 mg Capsule
75 mg PO BID Qty: 8 0RF
Continued
atenolol 25 MG tablet
25 mg PO BID
dabigatran etexilate [Pradaxa] 150 mg Capsule
150 mg PO BID
metformin 500 mg Tablet Extended Release 24 Hr
500 mg PO BID
losartan 50 mg Tablet
50 mg PO BID
glipizide 2.5 mg Tablet Extended Release 24hr
2.5 mg PO DAILY
esomeprazole magnesium 20 mg Capsule,Delayed Release(Dr/Ec)
20 mg PO DAILY
Excedrin
0.5 tab PO DAILYPRN PRN (Reason: headache)
Patient Comments:
03/15/2025, w/ caffeine.
triamterene-hydrochlorothiazid 37.5-25 mg Tablet
1 tab PO DAILY
Held
atorvastatin 80 MG tablet
80 mg PO HS
Hold Instructions: Resume on 03/30/25. Till your blood test for CPK is normal
Discharge Orders:
Discharge Patient (As Directed); Ordered 03/16/25
Ordered By: Mario Enamorado
Discharge Date and Time
Print Language: SLOVAK
[2025-03-16 13:17] LABS: Glycohemoglobin (HgbA1c) 8.1 % (4.0-5.9)
--- NOTE | 2025-03-16 14:18 | CM ---
Pt seen, previously provided with the BRICENO notice.
Pt is cleared for discharge to home today. His will provided transport.
Plan: Discharge to home with no needs.
== END 2025-03-16 14:15 | disposition home or self-care (01) ==
LOC: 4 WEST ACU 00:52
PROVIDERS: Student in an Organized Health Care Education/Training Program; ADMITTING PHYSICIAN Internal Medicine; ATTENDING PHYSICIAN Internal Medicine; EMERGENCY PHYSICIAN Emergency Medicine; FAMILY PHYSICIAN Internal Medicine Geriatric Medicine
DX: J10.1 Influenza due to other identified influenza virus with other respiratory manifestations (principal); R10.9 Unspecified abdominal pain; R05.9 Cough, unspecified; R50.9 Fever, unspecified; R11.2 Nausea with vomiting, unspecified; R53.1 Weakness; I10 Essential (primary) hypertension; E11.9 Type 2 diabetes mellitus without complications; I48.0 Paroxysmal atrial fibrillation; I25.10 Atherosclerotic heart disease of native coronary artery without angina pectoris; E78.00 Pure hypercholesterolemia, unspecified; M10.9 Gout, unspecified; R79.89 Other specified abnormal findings of blood chemistry; K76.0 Fatty (change of) liver, not elsewhere classified; R09.02 Hypoxemia; K80.20 Calculus of gallbladder without cholecystitis without obstruction; I49.1 Atrial premature depolarization; M60.9 Myositis, unspecified; I25.2 Old myocardial infarction; Z11.52 Encounter for screening for COVID-19; Z90.49 Acquired absence of other specified parts of digestive tract; Z95.5 Presence of coronary angioplasty implant and graft; Z88.0 Allergy status to penicillin; Z88.8 Allergy status to other drugs, medicaments and biological substances; Z79.82 Long term (current) use of aspirin; Z79.84 Long term (current) use of oral hypoglycemic drugs; Z79.899 Other long term (current) drug therapy; Z79.01 Long term (current) use of anticoagulants
CPT/HCPCS: 71046; 76700; 80048; 80053; 80076; 81003; 81015; 82550; 82962; 83036; 83735; 85025; 85027; 87040; 87502; 87811; 93005; 96361; 96374; 99285; G0378